=== PATIENT | male | born 1950 ===

== ENCOUNTER 2018-06-12 16:14 | Emergency (ER) | payer MEDICARE, MEDICAID ==
[2018-06-12 16:37] VITALS: BMI 25.9
[2018-06-12] MEDS ORDERED: Albuterol-Ipratrop 3 mg / 0.5 (3 ml) UD ONE ×2 (16:50→17:17)
[2018-06-12] MEDS ORDERED: Albuterol-Ipratrop 3 mg / 0.5 (3 ml) UD INH STA ×3 (16:52→16:58)
[2018-06-12 17:08] LABS: BASO # 0.2 K/uL (0.0-0.2); BASO % 1.2 % (0.0-2.0); EOS # 0.7 K/uL (0.0-0.7); EOS % 5.1 % (0.0-4.0); HEMOGLOBIN 15.7 g/dL (12.0-18.0); LYMPH % 22.3 % (20.0-40.0); MEAN CELL VOLUME 80.6 fL (80.0-94.0); MEAN CORPUSCULAR HEMOGLOBIN 26.6 pg (27.0-31.0); MONO # 1.2 K/uL (0.0-0.8); MONO % 9.3 % (0.0-10.0); NEUT # 8.3 K/uL (1.8-7.0); NEUT % 62.1 % (50.0-75.0); RBC 5.91 Mil/uL (4.40-5.90); WHITE BLOOD COUNT 13.4 K/uL (4.8-10.8)
[2018-06-12] MEDS: Magnesium Sulfate 1 gm in D5W 1 GM/100 ML BAG IVPB SCH ×2 (17:15→17:35)
--- NOTE | 2018-06-12 17:16 | RAD ---
Chest x-ray single frontal view HISTORY: Shortness of breath. COMPARISON: None available. FINDINGS: Patchy consolidative changes at the left lung base which may represent underlying atelectasis and or infiltrate. Question small left pleural effusion. Correlation with lateral view may be helpful. Post treatment interval follow-up may be helpful. Upper lobe granulomatous changes. Heart size within normal limits. Degenerative changes in the spine. IMPRESSION: Patchy consolidative changes at the left lung base which may represent underlying atelectasis and or infiltrate. Question small left pleural effusion. Correlation with lateral view may be helpful. Post treatment interval follow-up may be helpful.
[2018-06-12 17:21] LABS: ALB/GLOB RATIO 1.2 (1.0-2.1); ALBUMIN 4.1 g/dL (3.5-5.0); ALT/SGPT 26 U/L (21-72); AST/SGOT 27 U/L (17-59); BLOOD UREA NITROGEN 33 mg/dL (9-20); CALCIUM 9.2 mg/dl (8.6-10.4); GFR NON-AFRICAN AMERICAN 40
[2018-06-12 17:37] LABS: B-TYPE NATRIURETIC PEPTIDE 84.9 pg/mL (0-900)
[2018-06-12 18:18] VITALS: BP 117/70; PULSE 75; RESP 14; TEMP 98
[2018-06-12 18:20] VITALS: O2SAT 94
--- NOTE | 2018-06-12 18:20 | C.PDOC ---
History Of Present Illness 67 y/o male presents to the ED complaining of his typical asthma exacerbation symptoms for 2 days. Denies any fever, cough, chest pain, dizziness, or palpitations. Patient states he ran out of nebulizer medication at home. No sick contacts. No recent travel. Time Seen by Provider: 06/12/18 16:40 Chief Complaint (Nursing): Shortness Of Breath History Per: Patient History/Exam Limitations: no limitations Onset/Duration Of Symptoms: Days (x2) Current Symptoms Are (Timing): Still Present Initiating Event: Out Of Medications Past Medical History Reviewed: Historical Data, Nursing Documentation, Vital Signs Vital Signs: Last Vital Signs Temp 97.8 F 06/12/18 16:38 Pulse 84 06/12/18 16:38 Resp 18 06/12/18 16:38 BP 111/79 06/12/18 16:38 Pulse Ox 94 L 06/12/18 16:38 - Medical History PMH: Asthma, Diabetes, HTN, Hypercholesterolemia, Pneumonia Denies: HIV, Chronic Kidney Disease - [facility] Procedures INTRODUCTION OF ANTI-INFLAM INTO RESP TRACT, VIA OPENING (04/10/17) REPAIR SCALP SKIN, EXTERNAL APPROACH (08/11/15) Family History: States: Unknown Family Hx - Social History Hx Alcohol Use: No Hx Substance Use: No Review Of Systems Except As Marked, All Systems Reviewed And Found Negative. Constitutional: Negative for: Fever, Chills Cardiovascular: Negative for: Chest Pain, Palpitations Respiratory: Positive for: Wheezing. Negative for: Cough, Sputum Neurological: Negative for: Weakness, Headache, Dizziness Physical Exam - Physical Exam Appears: Non-toxic, No Acute Distress Skin: Warm, Dry Head: Atraumatic, Normacephalic Eye(s): bilateral: Normal Inspection, PERRL, EOMI Oral Mucosa: Moist Neck: Normal ROM Chest: Symmetrical Cardiovascular: Rhythm Regular, No Murmur Respiratory: No Accessory Muscle Use, No Rhonchi, Wheezing (expiratory wheezing bilaterally), Other (good air entry) Gastrointestinal/Abdominal: Soft, No Tenderness, No Distention Extremity: Bilateral: Atraumatic, Normal Color And Temperature Neurological/Psych: Oriented x3, Normal Speech ED Course And Treatment - Laboratory Results Result Diagrams: 06/12/18 17:05 06/12/18 17:05 ECG: Interpreted By Me, Viewed By Me ECG Rhythm: Sinus Rhythm Rate From EC (bpm) O2 Sat by Pulse Oximetry: 94 (RA) Pulse Ox Interpretation: Normal - Other Rad CXR X-Ray: Read By Radiologist Interpretation: Accession No. : [id number]. Patient Name / ID : DOLORES ALMEIDA / [id number]. Exam Date : 06/12/2018 16:59:51 ( Approved ). Study Comment : Sex / Age : M / 67Y. Creator : Benjamin Lr MD. Dictator : Benjamin Lr MD. Completion Manager : Market Risk Specialist : Benjamin Lr MD. Approver2 : Report Date : 06/12/2018 17:12:52. My Comment : . Chest x-ray single frontal view. HISTORY: Shortness of breath. COMPARISON: None available. FINDINGS: Patchy consolidative changes at the left lung base which may represent underlying atelectasis and or infiltrate. Question small left pleural effusion. Correlation with lateral view may be helpful. Post treatment interval follow-up may be helpful. Upper lobe granulomatous changes. Heart size within normal limits. Degenerative changes in the spine. IMPRESSION: Patchy consolidative changes at the left lung base which may represent underlying atelectasis and or infiltrate. Question small left pleural effusion. Correlation with lateral view may be helpful. Post treatment interval follow-up may be helpful. Medical Decision Making Medical Decision Making: Impression: Asthma exacerbation Initial Plan: --EKG --CMP --Troponin I --Pro-BNP --CBC --Chest x-ray --1 gm Mag Sulfate IV --Duoneb 3 ml INH x3 --Solu-Medrol 125 mg IVP --Reeval Progress: Labs reviewed. On reevaluation patient reports feeling better. Lungs are clear. Patient is medically stable. Plan is to discharge patient home with prescriptions for albuterol nebs, prednisone, and zithro. Disposition - Disposition Referrals: Favian Reynolds MD [Medical Doctor] - Disposition: HOME/ ROUTINE Disposition Time: 18:00 Condition: IMPROVED Additional Instructions: ELLE BERNAL, thank you for letting us take care of you today. Your provider was Pablo Tellez DO and you were treated for ASTHMA. The emergency medical care you received today was directed at your acute symptoms. If you were prescribed any medication, please fill it and take as directed. It may take several days for your symptoms to resolve. Return to the Emergency Department if your symptoms worsen, do not improve, or if you have any other problems. Please contact your doctor or call one of the physicians/clinics you have been referred to that are listed on the Patient Visit Information form that is included in your discharge packet. Bring any paperwork you were given at discharge with you along with any medications you are taking to your follow up visit. Our treatment cannot replace ongoing medical care by a primary care provider outside of the emergency department. Thank you for allowing the [facility] team to be part of your care today. Follow up with your primary care doctor in 2-3 days for re-evaluation and further management. Prescriptions: Albuterol 0.083% [Albuterol 0.083% Inhal Tanya (2.5 mg/3 ml) UD] 2.5 mg IH Q6 PRN #1 neb PRN Reason: asthma Azithromycin [Zithromax] 250 mg PO DAILY #6 tab predniSONE [Prednisone] 40 mg PO DAILY #10 tab Instructions: Asthma, Adult (DC) Forms: [facility] [employer] (Gu[place]ian) - Clinical Impression Clinical Impression: Asthma exacerbation - Scribe Statement The provider has reviewed the documentation as recorded by the Aleisha Maldonado Provider Attestation: All medical record entries made by the Fernandoibjorden were at my direction and personally dictated by me. I have reviewed the chart and agree that the record accurately reflects my personal performance of the history, physical exam, medical decision making, and the department course for this patient. I have also personally directed, reviewed, and agree with the discharge instructions and disposition.
--- NOTE | 2018-06-15 19:08 | CARD ---
APPROVED REPORT Date of service: 06/12/2018 EKG Measurement Heart [id number] <Conclusion> Normal sinus rhythm Normal ECG
== END 2018-06-12 18:38 | disposition home or self-care (01) ==
LOC: C.ER 16:14
DX: J45.901 Unspecified asthma with (acute) exacerbation (principal)
CPT/HCPCS: 71045; 80053; 83880; 84484; 85025; 93005; 94640; 96365; 96366; 96375; 99284; J2930; J3475